=== PATIENT | male | born 1965 | race Caucasian/White ===

== ENCOUNTER → 2016-03-24 | Emergency (ER) | payer OTHER ==
[~2016-03-24] VITALS: Ht 185.4 cm; Wt 77.3 kg
[~2016-03-24] MED LIST: FLEXERIL 1010 MG/TAB PO; NAPROSYN500 MG PO; NORCO 325 MG-51 TAB PO; PREDNISONE20 MG PO; PRINIVIL40 MG PO; ZOCOR5 MG PO
[2016-03-24 16:00] VITALS: BP 142/92; PULSE 61; TEMP 98.2
== END ==
LOC: COL.ER 15:56
DX: S62.112A Displaced fracture of triquetrum [cuneiform] bone, left wrist, initial encounter for closed fracture (principal); S63.502A Unspecified sprain of left wrist, initial encounter; W19.XXXA Unspecified fall, initial encounter

== ENCOUNTER 2016-06-18 10:34 | Emergency (ER) | payer OTHER ==
[~2016-06-18] VITALS: Ht 185.4 cm; Wt 81.8 kg
[~2016-06-18 10:34] MED LIST changes: -FLEXERIL 1010 MG/TAB PO; -NAPROSYN500 MG PO; -NORCO 325 MG-51 TAB PO; -PREDNISONE20 MG PO; -PRINIVIL40 MG PO
[2016-06-18 10:37] VITALS: BP 139/89; TEMP 97.9
[2016-06-18] MEDS ORDERED: NAPROSYN500 MG PO (10:40)
[2016-06-18] MEDS ORDERED: PRINIVIL40 MG PO (10:41)
[2016-06-18] MEDS ORDERED: PREDNISONE20 MG PO (11:54)
[2016-06-18] MEDS ORDERED: NORCO 325 MG-51 TAB PO (11:54)
[2016-06-18] MEDS ORDERED: FLEXERIL 1010 MG/TAB PO (11:54)
[2016-06-18 12:02] VITALS: PULSE 55
== END 2016-06-18 12:03 | disposition home or self-care (01) ==
LOC: COL.ER 10:34
DX: M54.41 Lumbago with sciatica, right side (principal); I10 Essential (primary) hypertension; M62.830 Muscle spasm of back
CPT/HCPCS: J1885; J2360

== ENCOUNTER → 2016-07-25 | Outpatient (CLI) | payer OTHER ==
[~2016-07-25] MED LIST changes: +FLEXERIL 1010 MG/TAB PO; +NAPROSYN500 MG PO; +NORCO 325 MG-51 TAB PO; +PREDNISONE20 MG PO; +PRINIVIL40 MG PO
== END ==
LOC: MHCPAIN 08:02
DX: G89.29 Other chronic pain (principal); M47.817 Spondylosis without myelopathy or radiculopathy, lumbosacral region; M54.16 Radiculopathy, lumbar region
CPT/HCPCS: G0463

== ENCOUNTER → 2016-08-03 | Outpatient (CLI) | payer OTHER | LOC: MHCPAIN 09:20 | DX: M47.817 Spondylosis without myelopathy or radiculopathy, lumbosacral region (principal) | CPT/HCPCS: J1100; Q9967 ==

== ENCOUNTER → 2016-09-01 | Outpatient (CLI) | payer OTHER | LOC: MHCPAIN 08:04 | DX: G89.29 Other chronic pain (principal); M47.817 Spondylosis without myelopathy or radiculopathy, lumbosacral region; M54.16 Radiculopathy, lumbar region; Z87.891 Personal history of nicotine dependence | CPT/HCPCS: G0463 ==

== ENCOUNTER → 2016-09-14 | Outpatient (CLI) | payer OTHER | LOC: MHCPAIN 12:01 | DX: M47.817 Spondylosis without myelopathy or radiculopathy, lumbosacral region (principal) | CPT/HCPCS: J1100; Q9967 ==

== ENCOUNTER → 2016-10-16 | Outpatient (CLI) | payer OTHER | LOC: MHCPAIN 08:17 | DX: G89.29 Other chronic pain (principal); M47.27 Other spondylosis with radiculopathy, lumbosacral region; Z87.891 Personal history of nicotine dependence | CPT/HCPCS: G0463 ==

== ENCOUNTER → 2016-12-11 | Outpatient (CLI) | payer OTHER | LOC: MHCPAIN 10:01 | DX: G89.29 Other chronic pain (principal); M47.27 Other spondylosis with radiculopathy, lumbosacral region; Z87.891 Personal history of nicotine dependence | CPT/HCPCS: G0463 ==

== ENCOUNTER → 2017-01-30 | Outpatient (CLI) | payer OTHER | LOC: MHCPAIN 08:51 | DX: G89.29 Other chronic pain (principal); M47.27 Other spondylosis with radiculopathy, lumbosacral region; Z87.891 Personal history of nicotine dependence | CPT/HCPCS: G0463 ==

== ENCOUNTER → 2017-05-02 | Outpatient (CLI) | payer OTHER | LOC: MHCPAIN 08:19 | DX: G89.29 Other chronic pain (principal); M47.817 Spondylosis without myelopathy or radiculopathy, lumbosacral region; M54.16 Radiculopathy, lumbar region | CPT/HCPCS: G0463 ==

== ENCOUNTER 2019-05-16 06:03 | Day surgery (SDC) | payer OTHER ==
[~2019-05-16] VITALS: Ht 185.4 cm; Wt 77.6 kg
[2019-05-16 06:20] VITALS: BP 120/81; PULSE 50; TEMP 97.5
[2019-05-16] MEDS ORDERED: NEURONTIN300 MG/CAP PO (06:23)
[2019-05-16] MEDS ORDERED: CLARITIN 1010 MG/TAB PO (06:23)
[2019-05-16] MEDS ORDERED: PROZAC 10MG10 MG PO (06:24)
[2019-05-16 07:35] VITALS: BP 116/74; PULSE 52; TEMP 97.5
--- NOTE | 2019-05-16 07:35 | NUR ---
PATIENT TO RECOVERY BAY 1 POST PROCEDURE VIA CART ACCOMPANIED BY Wilfrid MARTINEZ RN. ASSISTED TO CHAIR WITH 2 PERSON ASSIST. MADE COMFORTABLE IN CHAIR GIVEN WARM BLANKET. VITAL SIGNS TAKEN AND WNL. REFRESHMENT OFFERED, COFFEE ACCEPTED. RECOVERY PROCESS EXPLAINED. PATIENT RESTING HIGH FOWLERS IN CHAIR WITH FAMILY IN ROOM
[2019-05-16 07:50] VITALS: BP 109/71; PULSE 46
--- NOTE | 2019-05-16 07:50 | NUR ---
PT RESTING COMFORTABLY IN CHAIR, NO COMPLAINTS, DENIES NAUSEA OR PAIN
[2019-05-16 08:05] VITALS: BP 103/78; PULSE 52
--- NOTE | 2019-05-16 08:05 | NUR ---
0757 AT BEDSIDE SPEAKS WITH PT AND FAMILY REGARDING RESULTS. PT COMFORTABLE IN CHAIR, NO NAUSEA OR PAIN, SIPPING ON COFFEE.
[2019-05-16 08:20] VITALS: BP 112/73; PULSE 46
--- NOTE | 2019-05-16 08:20 | NUR ---
PATIENT DOING WELL POST PROCEDURE. NO COMPLAINTS. DISMISSAL INSTRUCTIONS REVIEWED AND HARD COPIES GIVEN. SIGNED, VERBALIZED UNDERSTANDING. IV SITE TO RIGHT FOREARM REMOVED @ 0823 NO REDNESS OR SWELLING
== END 2019-05-16 08:37 | disposition home or self-care (01) ==
LOC: SDCO 06:03
DX: Z12.11 Encounter for screening for malignant neoplasm of colon (principal); K57.30 Diverticulosis of large intestine without perforation or abscess without bleeding; E78.00 Pure hypercholesterolemia, unspecified; Z87.891 Personal history of nicotine dependence
CPT/HCPCS: J2250; J3010; J7030